=== PATIENT | female | born 1965 | race Two or more races ===

== ENCOUNTER 2021-01-24 13:30 | Observation (INO) | payer OTHER ==
[~2021-01-24] VITALS: Ht 157.5 cm; Wt 58.1 kg
[~2021-01-24 13:30] MED LIST: BUPIVACAINE/PF 0.25% ONE; CARV3.122 PO; FOLI1CAP9 PO; FURO-92 PO; HEPARIN 1,000 UNITS/ML, 10ML ONE; INSU100I11 SC; INSU100I13 SC; LEVO75TA5 PO; LIDOCAINE 1%, 20ML ONE; LOVA20TA2 PO; ONDA4TAB13 SL; PAPAVERINE 30 MG/ML, 2ML ONE; THROMBIN 5,000 UNIT VIAL TP ONE
[2021-01-24] MEDS ORDERED: CHLORHEXIDINE 15 ML UDC PO ONE (14:30)
[2021-01-24] MEDS ORDERED: SODIUM CHLORIDE 0.9% 1,000 ML IV SCH (15:00)
[2021-01-24 15:07] LABS: BASOPHILS % (AUTO) 1 % (0-1); EOSINOPHILS % (AUTO) 0 % (1-7); LYMPHOCYTES % (AUTO) 22 % (22-44); MEAN CORPUSCULAR HEMOGLOBIN 30.2 pg (27.0-34.8); MEAN CORPUSCULAR HGB CONC 33.5 g/dL (32.4-35.8); MEAN PLATELET VOLUME 11.5 fL (7.4-10.4); MONOCYTES % (AUTO) 8 % (2-9); NEUTROPHILS % (AUTO) 70 % (42-75); RED BLOOD COUNT 3.81 x10^6/uL (3.82-5.3); RED CELL DISTRIBUTION WIDTH 18.4 % (9.6-15.2)
[2021-01-24 15:17] LABS: ALANINE AMINOTRANSFERASE 23 U/L (12-78); ALBUMIN 2.3 g/dL (3.4-5.0); ANION GAP 5 mmol/L (5-15); CHLORIDE 99 mmol/L (98-107)
[2021-01-24 15:18] LABS: INTERNATIONAL NORMALIZED RATIO 0.96 (0.93-1.1); PROTHROMBIN TIME 10.3 Seconds (9.6-11.5)
[2021-01-24 15:19] LABS: ALKALINE PHOSPHATASE 225 U/L (45-117); BILIRUBIN,TOTAL 0.3 mg/dL (0.2-1.0); CREATININE 2.85 mg/dL (0.55-1.02)
[2021-01-24 15:23] LABS: CALCIUM 8.2 mg/dL (8.5-10.1)
[2021-01-24 16:01] LABS: MD SCAN; PLATELET COUNT 32 x10^3/uL (130-400)
[2021-01-24 16:38] LABS: BASOPHILS % (AUTO) 1 % (0-1); EOSINOPHILS % (AUTO) 0 % (1-7); LYMPHOCYTES % (AUTO) 24 % (22-44); MEAN CORPUSCULAR HEMOGLOBIN 30.2 pg (27.0-34.8); MEAN CORPUSCULAR HGB CONC 33.6 g/dL (32.4-35.8); MEAN PLATELET VOLUME 10.3 fL (7.4-10.4); MONOCYTES % (AUTO) 9 % (2-9); NEUTROPHILS % (AUTO) 66 % (42-75); RED BLOOD COUNT 3.54 x10^6/uL (3.82-5.3); RED CELL DISTRIBUTION WIDTH 18.2 % (9.6-15.2)
[2021-01-24 16:40] LABS: MD NO; PLATELET COUNT 25 x10^3/uL (130-400)
[2021-01-24] MEDS ORDERED: HEPARIN 1,000 UNITS/ML, 10ML ONE (18:28)
[2021-01-24] MEDS ORDERED: BUPIVACAINE/PF 0.25% ONE (18:28)
[2021-01-24] MEDS ORDERED: PAPAVERINE 30 MG/ML, 2ML ONE (18:28)
[2021-01-24] MEDS ORDERED: FENTANYL PF 100 MCG/2ML ONE ×3 (18:52→20:22)
[2021-01-24] MEDS ORDERED: DEXAMETHASONE 4 MG/ML, 1ML ONE (19:13)
[2021-01-24] MEDS ORDERED: CEFAZOLIN 1,000 MG ONE (19:13)
[2021-01-24] MEDS ORDERED: ONDANSETRON 2MG/ML, 2ML ONE ×2 (19:13→22:29)
[2021-01-24] MEDS ORDERED: PROPOFOL 10 MG/ML, 20ML ONE (19:13)
[2021-01-24] MEDS ORDERED: ONDANSETRON 2MG/ML, 2ML IVPush PRN (19:30)
[2021-01-24] MEDS ORDERED: PROMETHAZINE 25 MG SUPP PR PRN (19:30)
[2021-01-24] MEDS ORDERED: LORazepam 2 MG/ML, 1ML IVPush PRN (19:30)
[2021-01-24] MEDS ORDERED: ACETAMINOPHEN 325 MG TABLET PO PRN (19:30)
[2021-01-24] MEDS ORDERED: PROMETHAZINE 25 MG/ML, 1ML IVPush PRN (19:30)
[2021-01-24] MEDS ORDERED: HYDR-2214 PO (20:17)
[2021-01-24] MEDS ORDERED: OXYcodone 5 MG/5 ML ORAL.SOL UDC ONE ×2 (20:22→20:42)
[2021-01-24] MEDS: FENTANYL PF 100 MCG/2ML IV PRN ×2 (20:24→20:40)
[2021-01-24] MEDS: OXYcodone 5 MG/5 ML ORAL.SOL UDC PO PRN ×2 (20:34→20:43)
[2021-01-24] MEDS ORDERED: HYDROmorphone 1 MG/ML, 1ML INJ ONE (20:53)
[2021-01-24] MEDS: HYDROmorphone 1 MG/ML, 1ML INJ IVPush PRN ×2 (20:57→21:45)
[2021-01-24] MEDS ORDERED: hydrALAzine 20 MG/ML, 1ML IV PRN (21:00)
[2021-01-24] MEDS ORDERED: LABETALOL 5MG/ML, 20ML IV PRN (21:00)
[2021-01-24] MEDS ORDERED: LABETALOL 5MG/ML, 20ML ONE (21:00)
[2021-01-24] MEDS ORDERED: hydrALAzine 20 MG/ML, 1ML ONE (21:11)
[2021-01-24] MEDS ORDERED: PROTAMINE SULFATE IV ONE (21:30)
[2021-01-24] MEDS ORDERED: SODIUM CHLORIDE 0.9% IV ONE (21:30)
[2021-01-24 22:21] VITALS: BP 133/83
[2021-01-24] MEDS ORDERED: PROMETHAZINE 25 MG/ML, 1ML ONE ×2 (22:52→23:23)
[2021-01-24 23:50] VITALS: BP 152/84
[2021-01-25] MEDS ORDERED: ONDANSETRON 2MG/ML, 2ML IVPush PRN
[2021-01-25] MEDS ORDERED: morphine SULFATE 10 MG/ML, 1ML IVPush PRN
[2021-01-25] MEDS ORDERED: HYDROcodone/APAP 5/325 TABLET PO PRN ×2 (01:00)
[2021-01-25] MEDS ORDERED: ACETAMINOPHEN 500 MG TABLET PO PRN (01:00)
[2021-01-25] MEDS ORDERED: INSULIN MC SCH (01:30)
[2021-01-25 02:50] VITALS: BP 106/68
[2021-01-25] MEDS ORDERED: LEVOTHYROXINE 75 MCG TABLET PO SCH (06:00)
[2021-01-25] MEDS ORDERED: CARVEDILOL 3.125 MG TABLET PO SCH (06:00)
[2021-01-25 06:34] VITALS: BP 97/59
[2021-01-25] MEDS ORDERED: INSULIN LISPRO 100 UNITS/ML, PEN SQ-INSULIN SCH (07:00)
[2021-01-25] MEDS ORDERED: ONDANSETRON ODT 4 MG PO SCH (09:00)
[2021-01-25] MEDS ORDERED: MULTIVITS,STRESS FORMULA 1 TABLET PO SCH (09:00)
[2021-01-25] MEDS ORDERED: FUROSEMIDE 80 MG TABLET PO SCH (09:00)
[2021-01-25] MEDS ORDERED: FOLIC ACID 1 MG TABLET PO SCH (09:00)
[2021-01-25 10:46] VITALS: BP 101/62
[2021-01-25] MEDS ORDERED: LOVASTATIN 20 MG TABLET PO SCH (21:00)
== END 2021-01-25 12:00 | disposition home or self-care (01) ==
LOC: OUT 13:30 → ORIP 23:06 → 4NE 23:52 → DCLOUNGE 01-25 11:43
PROVIDERS: ADMIT Surgery; ATTEND Surgery
DX: I12.0 Hypertensive chronic kidney disease with stage 5 chronic kidney disease or end stage renal disease (principal); E11.22 Type 2 diabetes mellitus with diabetic chronic kidney disease; N18.6 End stage renal disease; Z20.822 Contact with and (suspected) exposure to COVID-19; E78.5 Hyperlipidemia, unspecified; Z79.899 Other long term (current) drug therapy; Z99.2 Dependence on renal dialysis
CPT/HCPCS: 36430; 36832; 80053; 82947; 82962; 85025; 85610; 85730; 86850; 86870; 86900; 86902; 86922; 87635; 93005; C1760; G0378; J0360; J0690; J1100; J1170; J1644; J1815; J2405; J2440; J2550; J2704; J2720; J3010; J7030; P9035; Q0162; 86923

== ENCOUNTER 2021-02-24 13:49 | Inpatient (IN) | payer OTHER ==
[~2021-02-24] VITALS: Ht 157.5 cm; Wt 63.6 kg
[~2021-02-24 13:49] MED LIST changes: -BUPIVACAINE/PF 0.25% ONE; -HEPARIN 1,000 UNITS/ML, 10ML ONE; +HYDR-2214 PO; -LIDOCAINE 1%, 20ML ONE; -PAPAVERINE 30 MG/ML, 2ML ONE; -THROMBIN 5,000 UNIT VIAL TP ONE
[2021-02-24 14:33] LABS: BASOPHILS % (AUTO) 1 % (0-1); EOSINOPHILS % (AUTO) 0 % (1-7); LYMPHOCYTES % (AUTO) 27 % (22-44); MEAN CORPUSCULAR HEMOGLOBIN 31.7 pg (27.0-34.8); MEAN CORPUSCULAR HGB CONC 32.8 g/dL (32.4-35.8); MEAN PLATELET VOLUME 10.4 fL (7.4-10.4); MONOCYTES % (AUTO) 11 % (2-9); NEUTROPHILS % (AUTO) 62 % (42-75); PLATELET COUNT 77 x10^3/uL (130-400); RED BLOOD COUNT 3.25 x10^6/uL (3.82-5.3); RED CELL DISTRIBUTION WIDTH 17.6 % (9.6-15.2)
[2021-02-24 14:34] LABS: MD NO
[2021-02-24 14:35] LABS: ALANINE AMINOTRANSFERASE 9 U/L (12-78); ALBUMIN 2.1 g/dL (3.4-5.0); ANION GAP 5 mmol/L (5-15); CALCIUM 7.8 mg/dL (8.5-10.1); CHLORIDE 99 mmol/L (98-107); CREATININE 4.44 mg/dL (0.55-1.02)
[2021-02-24 14:37] LABS: ALKALINE PHOSPHATASE 267 U/L (45-117); BILIRUBIN,TOTAL 0.2 mg/dL (0.2-1.0); TOTAL PROTEIN 6.2 g/dL (6.4-8.2)
--- NOTE | 2021-02-24 16:20 | NUR ---
PT AND FAMILY TO TRIAGE 1 FOR RECHECK OF VS. LAB RESULTS REVIEWED WITH PT AND FAMILY, UPDATE ON POC.
--- NOTE | 2021-02-24 16:45 | NUR ---
INSURANCE SALES ASSISTANT: PT TO ROOM FROM LOBBY
[2021-02-24] MEDS ORDERED: VANCOMYCIN PER PHARMACY MC PRN (19:00)
[2021-02-24] MEDS ORDERED: HYDROcodone/APAP 5/325 TABLET PO PRN (19:00)
[2021-02-24] MEDS ORDERED: INSULIN LISPRO 100 UNITS/ML, PEN SQ-INSULIN SCH (19:00)
[2021-02-24] MEDS ORDERED: SODIUM ZIRCONIUM CYCLOSILICATE 10 GM PO ONE (19:30)
[2021-02-24] MEDS ORDERED: BISACODYL 10 MG SUPP PR PRN (19:30)
[2021-02-24] MEDS ORDERED: POLYETHYLENE GLYCOL 17 GM PACKET PO PRN (19:30)
[2021-02-24 20:29] VITALS: BP 185/94
[2021-02-24] MEDS ORDERED: PHARMACOKINETIC CONSULTATION MC ONE (21:00)
[2021-02-24] MEDS ORDERED: VANCOMYCIN 1,500 MG in SODIUM CHLORIDE 0.9% 250 ML IV ONE ×2 (21:00→22:30)
[2021-02-24] MEDS ORDERED: PHARMACOKINETIC MONITORING MC PRN (21:00)
[2021-02-24 21:14] VITALS: BP 176/92
[2021-02-24] MEDS: ONDANSETRON ODT 4 MG SL SCH (21:15)
[2021-02-24] MEDS: hydrALAzine 20 MG/ML, 1ML IVPush PRN (21:15)
[2021-02-24 21:26] VITALS: BP 160/83
[2021-02-25 00:01] VITALS: BP 155/84
[2021-02-25] MEDS: CARVEDILOL 3.125 MG TABLET PO SCH ×3 (00:03→21:17)
[2021-02-25] MEDS: LOVASTATIN 20 MG TABLET PO SCH ×2 (00:03→21:16)
[2021-02-25] MEDS: HEPARIN 5,000 UNITS/ML, 1ML SQ SCH ×3 (00:04→16:17)
[2021-02-25] MEDS: INSULIN GLARGINE 100 UNITS/ML, PEN SQ-INSULIN SCH ×2 (00:59→21:17)
[2021-02-25] MEDS: INSULIN LISPRO 100 UNITS/ML, PEN SQ-INSULIN SCH ×5 (00:59→21:17)
[2021-02-25] MEDS ORDERED: FAMOTIDINE 20 MG/2 ML IVPush ONE (02:30)
[2021-02-25] MEDS ORDERED: DIPHENHYDRAMINE 50 MG/ML, 1ML IVPush ONE (02:30)
[2021-02-25] MEDS: ONDANSETRON ODT 4 MG SL SCH ×3 (02:34→16:17)
[2021-02-25 05:06] LABS: BASOPHILS % (AUTO) 0 % (0-1); EOSINOPHILS % (AUTO) 0 % (1-7); LYMPHOCYTES % (AUTO) 22 % (22-44); MEAN CORPUSCULAR HEMOGLOBIN 31.5 pg (27.0-34.8); MEAN CORPUSCULAR HGB CONC 33.5 g/dL (32.4-35.8); MEAN PLATELET VOLUME 9.8 fL (7.4-10.4); MONOCYTES % (AUTO) 7 % (2-9); NEUTROPHILS % (AUTO) 71 % (42-75); PLATELET COUNT 73 x10^3/uL (130-400); RED BLOOD COUNT 3.27 x10^6/uL (3.82-5.3); RED CELL DISTRIBUTION WIDTH 16.7 % (9.6-15.2)
[2021-02-25 05:17] LABS: ANION GAP 7 mmol/L (5-15); CALCIUM 8.3 mg/dL (8.5-10.1); CHLORIDE 102 mmol/L (98-107); CREATININE 4.62 mg/dL (0.55-1.02)
[2021-02-25 05:20] LABS: MD NO
[2021-02-25 07:28] VITALS: BP 161/82
[2021-02-25] MEDS: SENNA/DOCUSATE TABLET PO SCH (08:06)
[2021-02-25] MEDS: FOLIC ACID PO SCH (08:06)
[2021-02-25] MEDS: VITAMIN B COMP W C PO SCH (08:06)
[2021-02-25] MEDS: FUROSEMIDE 40 MG TABLET PO SCH (08:32)
[2021-02-25] MEDS: LEVOTHYROXINE 75 MCG TABLET PO SCH (08:32)
[2021-02-25] MEDS ORDERED: INSULIN LISPRO 100 UNIT/ML, 3ML VIAL SQ-INSULIN ONE (12:30)
[2021-02-25] MEDS ORDERED: MIDAZOLAM 1 MG/ML, 2ML ONE (13:14)
[2021-02-25] MEDS ORDERED: FENTANYL PF 100 MCG/2ML ONE ×2 (13:14→14:35)
[2021-02-25] MEDS ORDERED: OXYcodone 5 MG/5 ML ORAL.SOL UDC PO PRN (14:30)
[2021-02-25] MEDS ORDERED: HYDROmorphone 1 MG/ML, 1ML INJ IVPush PRN (14:30)
[2021-02-25] MEDS ORDERED: FENTANYL PF 100 MCG/2ML IV PRN (14:30)
[2021-02-25] MEDS ORDERED: MEPERIDINE/PF 25MG/0.5ML IVPush PRN (14:30)
[2021-02-25] MEDS ORDERED: HYDROcodone/APAP 7.5-325MG/15ML UDC PO PRN (14:30)
[2021-02-25] MEDS ORDERED: ONDANSETRON 2MG/ML, 2ML IVPush PRN (14:30)
[2021-02-25] MEDS ORDERED: PROPOFOL 10 MG/ML, 20ML ONE (14:32)
[2021-02-25] MEDS ORDERED: ONDANSETRON 2MG/ML, 2ML ONE (14:32)
[2021-02-25] MEDS ORDERED: CEFAZOLIN 1,000 MG ONE (14:32)
[2021-02-25] MEDS ORDERED: OXYcodone 5 MG/5 ML ORAL.SOL UDC ONE (14:36)
[2021-02-25 14:59] VITALS: BP 173/88
[2021-02-25 15:17] LABS: CALCIUM 8.2 mg/dL (8.5-10.1)
[2021-02-25 15:24] VITALS: BP 154/88
[2021-02-25] MEDS ORDERED: DEXTROSE 50%, 50ML SYRINGE ONE (18:19)
[2021-02-25 18:40] VITALS: BP 125/76
[2021-02-25] MEDS ORDERED: GLUCAGON 1 MG IM PRN (19:00)
[2021-02-25] MEDS ORDERED: DEXTROSE 4 GM TAB.CHEW PO PRN (19:00)
[2021-02-25] MEDS ORDERED: DEXTROSE 50%, 50ML SYRINGE IVPush PRN (19:00)
[2021-02-25 21:15] VITALS: BP 139/84
[2021-02-25] MEDS: SODIUM CHLORIDE FLUSH 10ML SYR IVF SCH (21:17)
[2021-02-26 00:54] VITALS: BP 134/80
[2021-02-26] MEDS: ONDANSETRON ODT 4 MG SL SCH ×3 (03:52→16:54)
[2021-02-26 06:32] LABS: VANCOMYCIN,RANDOM 23.6 mcg/mL
[2021-02-26] MEDS: ACETAMINOPHEN 325 MG TABLET PO PRN (06:49)
[2021-02-26 07:04] VITALS: BP 102/65
[2021-02-26] MEDS: VITAMIN B COMP W C PO SCH (07:58)
[2021-02-26] MEDS: FOLIC ACID PO SCH (07:58)
[2021-02-26] MEDS: HEPARIN 5,000 UNITS/ML, 1ML SQ SCH ×2 (08:00)
[2021-02-26] MEDS: LEVOTHYROXINE 75 MCG TABLET PO SCH (08:04)
[2021-02-26] MEDS: SODIUM CHLORIDE FLUSH 10ML SYR IVF SCH ×2 (08:05→21:28)
[2021-02-26] MEDS: FUROSEMIDE 40 MG TABLET PO SCH (08:05)
[2021-02-26] MEDS: CARVEDILOL 3.125 MG TABLET PO SCH ×2 (08:05→21:28)
[2021-02-26] MEDS: INSULIN LISPRO 100 UNITS/ML, PEN SQ-INSULIN SCH ×4 (08:07→21:30)
[2021-02-26] MEDS: SENNA/DOCUSATE TABLET PO SCH (08:11)
[2021-02-26] MEDS ORDERED: INSULIN LISPRO 100 UNIT/ML, 3ML VIAL SQ-INSULIN ONE (09:00)
[2021-02-26] MEDS ORDERED: CEFAZOLIN 2,000 MG in SODIUM CHLORIDE 0.9% 50 ML IV SCH (13:30)
[2021-02-26 14:53] VITALS: BP 114/73
[2021-02-26] MEDS ORDERED: EPHEDRINE 50 MG/ML, 1ML ONE (16:37)
[2021-02-26] MEDS: CEFAZOLIN 1,000 MG in SODIUM CHLORIDE 0.9% 50 ML IV SCH (16:47)
[2021-02-26] MEDS ORDERED: VANCOMYCIN 500 MG in SODIUM CHLORIDE 0.9% 100 ML IV SCH (18:00)
[2021-02-26 18:39] VITALS: BP 126/82
[2021-02-26] MEDS: LOVASTATIN 20 MG TABLET PO SCH (21:28)
[2021-02-26] MEDS: INSULIN GLARGINE 100 UNITS/ML, PEN SQ-INSULIN SCH (21:29)
[2021-02-27 00:13] VITALS: BP 118/74
[2021-02-27] MEDS: ONDANSETRON ODT 4 MG SL SCH ×3 (03:32→21:05)
[2021-02-27] MEDS: CEFAZOLIN 1,000 MG in SODIUM CHLORIDE 0.9% 50 ML IV SCH ×2 (04:54→15:20)
[2021-02-27 05:49] LABS: ALBUMIN 1.9 g/dL (3.4-5.0); CALCIUM 7.9 mg/dL (8.5-10.1); CHLORIDE 107 mmol/L (98-107)
[2021-02-27 05:53] LABS: ANION GAP 8 mmol/L (5-15); CREATININE 4.31 mg/dL (0.55-1.02)
[2021-02-27] MEDS: FOLIC ACID PO SCH (07:49)
[2021-02-27] MEDS: VITAMIN B COMP W C PO SCH (07:49)
[2021-02-27 08:24] VITALS: BP 136/81
[2021-02-27] MEDS: INSULIN LISPRO 100 UNITS/ML, PEN SQ-INSULIN SCH ×4 (08:26→21:19)
[2021-02-27] MEDS: LEVOTHYROXINE 75 MCG TABLET PO SCH (08:27)
[2021-02-27] MEDS: CARVEDILOL 3.125 MG TABLET PO SCH ×2 (08:27→21:05)
[2021-02-27] MEDS: SENNA/DOCUSATE TABLET PO SCH (08:29)
[2021-02-27] MEDS: FUROSEMIDE 40 MG TABLET PO SCH (08:29)
[2021-02-27] MEDS: SODIUM CHLORIDE FLUSH 10ML SYR IVF SCH ×2 (08:29→21:05)
[2021-02-27 14:00] VITALS: BP 143/81
[2021-02-27 18:34] VITALS: BP 134/78
[2021-02-27] MEDS ORDERED: INSULIN GLARGINE 100 UNITS/ML, PEN SQ-INSULIN SCH (21:00)
[2021-02-27 21:02] VITALS: BP 172/84
[2021-02-27] MEDS: LOVASTATIN 20 MG TABLET PO SCH (21:04)
[2021-02-28 00:49] VITALS: BP 128/80
[2021-02-28] MEDS: ONDANSETRON ODT 4 MG SL SCH ×3 (04:50→18:24)
[2021-02-28] MEDS: CEFAZOLIN 1,000 MG in SODIUM CHLORIDE 0.9% 50 ML IV SCH (04:50)
[2021-02-28 05:52] LABS: BASOPHILS % (AUTO) 1 % (0-1); EOSINOPHILS % (AUTO) 0 % (1-7); LYMPHOCYTES % (AUTO) 31 % (22-44); MEAN CORPUSCULAR HEMOGLOBIN 32.1 pg (27.0-34.8); MEAN CORPUSCULAR HGB CONC 33.9 g/dL (32.4-35.8); MEAN PLATELET VOLUME 10.2 fL (7.4-10.4); MONOCYTES % (AUTO) 8 % (2-9); NEUTROPHILS % (AUTO) 60 % (42-75); PLATELET COUNT 90 x10^3/uL (130-400); RED BLOOD COUNT 3.39 x10^6/uL (3.82-5.3); RED CELL DISTRIBUTION WIDTH 16.9 % (9.6-15.2)
[2021-02-28 06:01] LABS: ALBUMIN 1.9 g/dL (3.4-5.0); ANION GAP 7 mmol/L (5-15); CHLORIDE 109 mmol/L (98-107); CREATININE 5.64 mg/dL (0.55-1.02)
[2021-02-28 06:17] LABS: MD NO
[2021-02-28 06:59] VITALS: BP 142/77
[2021-02-28] MEDS: INSULIN LISPRO 100 UNITS/ML, PEN SQ-INSULIN SCH ×4 (07:00→21:00)
[2021-02-28] MEDS: FOLIC ACID PO SCH (07:25)
[2021-02-28] MEDS: VITAMIN B COMP W C PO SCH (07:25)
[2021-02-28] MEDS: SENNA/DOCUSATE TABLET PO SCH (09:00)
[2021-02-28] MEDS: CARVEDILOL 3.125 MG TABLET PO SCH (09:18)
[2021-02-28] MEDS: LEVOTHYROXINE 75 MCG TABLET PO SCH (09:19)
[2021-02-28] MEDS: FUROSEMIDE 40 MG TABLET PO SCH (09:19)
[2021-02-28] MEDS: SODIUM CHLORIDE FLUSH 10ML SYR IVF SCH ×2 (09:20→23:28)
[2021-02-28 12:48] VITALS: BP 168/101
[2021-02-28] MEDS ORDERED: CEFAZOLIN 1,000 MG in SODIUM CHLORIDE 0.9% 50 ML IV SCH (16:00)
[2021-02-28 17:36] VITALS: BP 183/110
[2021-02-28] MEDS: hydrALAzine 20 MG/ML, 1ML IVPush PRN (17:41)
[2021-02-28 18:02] VITALS: BP 181/94
[2021-02-28] MEDS: ACETAMINOPHEN 325 MG TABLET PO PRN (18:24)
[2021-02-28] MEDS ORDERED: INSULIN GLARGINE 100 UNITS/ML, PEN SQ-INSULIN SCH (21:00)
[2021-02-28 23:15] VITALS: BP 174/88
[2021-02-28] MEDS: LOVASTATIN 20 MG TABLET PO SCH (23:30)
[2021-02-28] MEDS: CARVEDILOL 6.25 MG TABLET PO SCH (23:30)
[2021-03-01 01:32] VITALS: BP 166/82
[2021-03-01] MEDS: ONDANSETRON ODT 4 MG SL SCH ×2 (02:47→11:20)
[2021-03-01] MEDS: INSULIN LISPRO 100 UNITS/ML, PEN SQ-INSULIN SCH ×2 (07:00→11:22)
[2021-03-01] MEDS ORDERED: CEFAZOLIN PMX 2GM/50ML 50 ML IVPB ONE (07:00)
[2021-03-01] MEDS: SENNA/DOCUSATE TABLET PO SCH (08:03)
[2021-03-01] MEDS: FUROSEMIDE 40 MG TABLET PO SCH (08:04)
[2021-03-01] MEDS: CARVEDILOL 6.25 MG TABLET PO SCH (08:04)
[2021-03-01] MEDS: FOLIC ACID PO SCH (08:05)
[2021-03-01] MEDS: VITAMIN B COMP W C PO SCH (08:05)
[2021-03-01] MEDS: LEVOTHYROXINE 75 MCG TABLET PO SCH (08:05)
[2021-03-01] MEDS: SODIUM CHLORIDE FLUSH 10ML SYR IVF SCH (08:06)
[2021-03-01 08:18] VITALS: BP 166/82
[2021-03-01] MEDS ORDERED: CARV6.2512 PO (10:40)
== END 2021-03-01 13:59 | disposition home or self-care (01) | DRG 264 ==
LOC: ED 17:22 → EDIP 17:35 → 4EST 19:55 → DCLOUNGE 03-01 13:50
PROVIDERS: ADMIT Hospitalist; ATTEND Family Medicine
PROC: 0JBD0ZZ Excision of Right Upper Arm Subcutaneous Tissue and Fascia, Open Approach (ICD-10-PCS; principal; 2021-02-25 12:15)
PROC: 5A1D70Z Performance of Urinary Filtration, Intermittent, Less than 6 Hours Per Day (ICD-10-PCS; 2021-02-26)
DX: T82.7XXA Infection and inflammatory reaction due to other cardiac and vascular devices, implants and grafts, initial encounter (principal); N18.6 End stage renal disease; T81.30XA Disruption of wound, unspecified, initial encounter; L03.113 Cellulitis of right upper limb; I12.0 Hypertensive chronic kidney disease with stage 5 chronic kidney disease or end stage renal disease; D63.8 Anemia in other chronic diseases classified elsewhere; D69.6 Thrombocytopenia, unspecified; E03.9 Hypothyroidism, unspecified; E11.22 Type 2 diabetes mellitus with diabetic chronic kidney disease; E11.65 Type 2 diabetes mellitus with hyperglycemia; E78.5 Hyperlipidemia, unspecified; E87.5 Hyperkalemia; Y83.2 Surgical operation with anastomosis, bypass or graft as the cause of abnormal reaction of the patient, or of later complication, without mention of misadventure at the time of the procedure; Z79.4 Long term (current) use of insulin; Z82.49 Family history of ischemic heart disease and other diseases of the circulatory system; Z83.3 Family history of diabetes mellitus; Z90.49 Acquired absence of other specified parts of digestive tract; Z99.2 Dependence on renal dialysis
CPT/HCPCS: 36415; 80048; 80053; 80069; 80202; 82306; 82310; 82330; 82728; 82947; 82962; 83036; 83540; 83550; 83970; 84100; 85025; 86704; 86706; 87040; 87070; 87075; 87077; 87186; 87205; 87340; 87635; 90935; 93005; 96374; 99285; G0378; J0690; J1644; J2250; J2405; J2704; J3010; J3370; Q0162; J0360; J1200; J1815; J7050